=== PATIENT | male | born 1950 ===

== ENCOUNTER 2020-07-03 11:23 | Emergency (ER) | payer MEDICARE, SELFPAY ==
--- NOTE | ~2020-07-03 | XR_ITS ---
EXAMINATION: XR elbow LT min 3V EXAM DATE: 07/03/2020 12:19 INDICATION: Initial encounter following injury, with pain of the left elbow. TECHNIQUE: Left elbow frontal, lateral with flexion, and oblique projections obtained and reviewed. There is no prior study for comparison. FINDINGS: There is acute closed posttraumatic fracture through the mid aspect of the left olecranon p rocess extending into the articular surface of the elbow joint. There is about 4 mm distraction. Ther e is a a joint hemarthrosis. There is overlying soft tissue swelling. No other fracture is identifie d. IMPRESSION: Left olecranon fracture into elbow joint; orthopedic consult. Reviewed, dictated and finalized at location B.
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
[2020-07-03 11:48] VITALS: BP 138/67; PULSE 59; RESP 16; TEMP 36.1; O2SAT 100
[2020-07-03] MEDS: TETANUS,DIPHTHERIA,AC PERTUSSIS ADULT (0.5 ML) BOOSTRIX IM (12:09)
--- NOTE | 2020-07-03 12:53 | PC.NURSE ---
circle beveler spoke with ortho dr. nick pérez. circle beveler ordered removable long arm ocl. no webbing. fiberglass material with barb to hold in place. wound to be dressed with silvadene, nonadherant dressing, and gauze. sling to be applied. vorb. timothy hansen.
[2020-07-03] MEDS: SILVER SULFADIAZINE 1% CR 50 GM JAR (*BKC) 1 APPLIC TOPICAL (13:09)
== END 2020-07-03 13:30 | disposition home or self-care (01) ==
PROVIDERS: Emergency Provider Nurse Practitioner Family
DX: S52.022A Displaced fracture of olecranon process without intraarticular extension of left ulna, initial encounter for closed fracture (principal); V18.4XXA Pedal cycle driver injured in noncollision transport accident in traffic accident, initial encounter; Z23 Encounter for immunization; E03.9 Hypothyroidism, unspecified; G20 Parkinson's disease
CPT/HCPCS: 29105; 73080; 90471; 90715; 99214; A4565; A9270; G0463

== ENCOUNTER 2021-01-22 09:02 | Outpatient (CLI) | payer MEDICARE, SELFPAY | END 2021-01-22 09:03 | disposition home or self-care (01) | LOC: ANHCOVIDVC 09:02 | DX: Z23 Encounter for immunization (principal) | CPT/HCPCS: 0001A; 91300 ==

== ENCOUNTER 2021-02-12 09:07 | Outpatient (CLI) | payer MEDICARE, SELFPAY | END 2021-02-12 09:08 | disposition home or self-care (01) | LOC: ANHCOVIDVC 09:07 | DX: Z23 Encounter for immunization (principal) | CPT/HCPCS: 0002A; 91300 ==